=== PATIENT | male | born 1950 | race Caucasian/White ===

== ENCOUNTER 2022-07-22 08:28 | Outpatient (CLI) | payer MEDICARE, OTHER ==
[2022-07-22 09:39] VITALS: BP 130/62
--- NOTE | 2022-07-22 09:39 | SLEEP CARE CONSULTATION ---
Information from patient questionnaire entered by Mirian Benoit. I have reviewed and concur with the information entered by Mirian Benoit. This document represents the service I personally performed and the decisions made by me, Marjorie Stinson ARNP. History of Present Illness Service Date and Time: 07/22/2022 08 Reason for Visit: New patient, Previously diagnosed sleep apnea, sleep apnea on CPAP therapy (first compliance, s/u 06/02) Chief Complaint: reports: Unrefreshed sleep, Snoring Date of Onset: 2YRS Usual bedtime: 10-11PM Time it takes to fall asleep: 20-60MIN Snores at night: Yes Observed to quit breathing while asleep: Yes Sleeps alone due to snoring: Yes Number of times waking at night: 2-3 Reasons for waking at night: reports: Bathroom, Other (UNKNOWN ). denies: Choking, Gasping for air Toss, Turn, or Twitch while sleeping: No Recalls having dreams: Yes Usually gets out of bed at: 7-8AM Feels refreshed in the morning: No Morning headache: No Sleepy or fatigued during the day: Yes Ever fallen asleep while driving: No Takes day naps: Yes (daily for 1-2 hours) Dreams during day naps: No Prior [facility]: Yes [facility] Additional HPI information: ESPERANZA DOMINGUEZ was previously diagnosed to have moderate, AHI 22? per pt, obstructive sleep apnea-hypopnea syndrome and comes in today to establish care for CPAP therapy. - Parasomnia Symptoms Ever been unable to move upon waking from sleep: No Walks in sleep: No Talks in sleep: No Ever acted out dreams in sleep: No Ever felt weak in the knees when startled or emotional: No Bothered by creepy, crawly, restless sensations in legs: No Problems with memory or concentration: No CPAP Compliance Data - Data Reviewed with Patient Average duration of nightly device use: 5 hours 22 minutes Compliance rate %: 10 ( days used) Current pressure setting (cmH2O): 5-15 (mean 7.5, avg 10.8, max 9.1) Average residual AHI: 6.4 Central apnea: 3.7 Compliance data discussion: He has a Leyla CPAP that was set up on 05/2022. He is getting his supplies from [facility]. He is using a full face mask, F&P Freddie full, size large. He had difficulties with the full face mask moving when he turned on his side and he stopped using the mask after 2 weeks. Subjective Missed days of use due to: reports: mask issues (not able to get mask to stay in place or obstructing his nostrils) Patient concerns: reports: mask discomfort (coming dislodged), mask leak noise. denies: aerophagia, air blowing in eyes, condensation in mask/hose, nasal congestion, dry mouth, nose, throat, epistaxis Observed to snore while using device: No Current pressure setting perceived as: comfortable On therapy, patient: reports: other (no difference noted by patient in 2 weeks he was able to wear mask). denies: drowsiness while driving Initial Mathews Sleepiness Scale score: 7 (07/22/22) Past Medical History Past Medical History: reports: Hypertension, Arthritis, Depression, Other (anette rotator cuff repairs; 2 laminectomies, 1 fusion of back vertebrae) Social History The patient's occupation is a RE. Patient is and lives in . Have you smoked in the past 12 months: No Years of smokin Quit date: 1981 Alcohol use: Yes Alcohol amount and frequency: 1-2 WEEK Caffeine use: Yes Caffeine amount and frequency: 2-3 DAILY Family History Family history of sleep disordered breathing: No (UNKNOWN) Allergies and Home Medications Known drug allergies: Yes (JASON-FLU) Drug allergies reviewed: Yes Home medication list reviewed: Yes Allergy and home medication list: Medications: Lisinopril 10 mg daily Celexa 20 mg daily Atorvastatin 40 mg daily [place] 5 mg, 2-3 times a day Cannibus, 1-2 daily Review of Systems Weight gain over past 5 years: 2-3 Weight loss over past 5 years: 2-3 Cardiovascular: reports: high blood pressure Gastrointestinal: denies: heartburn Neurological: reports: gait or balance problems. denies: headaches Psychiatric: reports: depression Endocrine: reports: sluggishness Musculoskeletal: reports: joint pain, neck pain, back pain, mobility problems Immunologic: reports: sneezing Physical Exam Vital signs obtained and entered by: MIRIAN Lau MA Blood Pressure: 130/62 (LEFT ARM) Cuff size: regular Heart Rate: 71 O2 Saturation: 97 Height: 5 ft 9 in Weight: 198 lb 3.2 oz Body Mass Index: 29.2 BMI Classification: Overweight Neck circumference: 18.5 Impression and Plan 1. Obstructive Sleep Apnea-Hypopnea Syndrome, moderate, with poor treatment compliance and fair apnea control with mild elevation of residual AHI. He has not used his CPAP for long and I will wait until I have more information before we adjust his pressure settings. He started with a F&P full face Freddie mask but it would dislodge, leak and wake him up. He tried to make it work for 2 weeks but he just could not continue with the mask. After some discussion about mask types, he would like to try a nasal mask. I had Florencio, Lead Public Health Dietitian, come and fit him to a Garcia Nuance Pro with gel frame, size medium and he felt it was comfortable. He thinks he could use this mask. I will have him give it a try and then follow up with him in 1-2 months to recheck compliance. Once I have a copy of his last sleep study, I will update his prescription with [facility] and add the change in mask to it. Patient's apnea severity and rationale for treatment to reduce apnea, improve sleep quality and reduce cardiovascular and cerebrovascular events was reviewed. I also reviewed the benefit of consistent device use of CPAP for hypertension and depression. * Continue auto CPAP pressure at 5-15 cmH2O * Mask fitting: Garcia Nuance Pro with gel frame kit * Notify me if snoring with mask or feeling that the pressure is too much or too little * Attempt to lose weight * Call this office if any problems using CPAP * Return for follow up in 1-2 months, or sooner if concerns arise Counseling Topics: Spare mask, Weight loss health impact Visit Type: In Office Time Spent with Patient (minutes): 38 Provider Statement: I spent 100% of the Face to Face Visit with the patient with greater than 50% spent counseling the patient and coordination of care.
== END 2022-07-22 08:29 | disposition home or self-care (01) ==
LOC: SC 08:28
PROVIDERS: ATTEND Nurse Practitioner Family
DX: G47.33 Obstructive sleep apnea (adult) (pediatric) (principal)
CPT/HCPCS: 99203; G0463; 99212